=== PATIENT | female | born 2000 ===

== ENCOUNTER 2020-03-19 17:04 | Emergency (ER) | payer OTHER | END 2020-03-19 19:15 | disposition home or self-care (01) | LOC: ERS 17:04 | DX: O9A.212 Injury, poisoning and certain other consequences of external causes complicating pregnancy, second trimester (principal); S00.03XA Contusion of scalp, initial encounter; O99.342 Other mental disorders complicating pregnancy, second trimester; F32.9 Major depressive disorder, single episode, unspecified; F41.9 Anxiety disorder, unspecified; Z3A.14 14 weeks gestation of pregnancy; Y04.8XXA Assault by other bodily force, initial encounter | CPT/HCPCS: 36415; 86900; 86901 ==